=== PATIENT | male | born 1960 | race Caucasian/White ===

== ENCOUNTER 2023-04-28 10:28 | Emergency (ER) | payer MEDICARE, MEDICAID, SELFPAY ==
[2023-04-28] VITALS (8 sets, daily range): BP systolic 114–144; BP diastolic 71–99; PULSE 84–95; RESP 12–23; TEMP 37.2; O2SAT 95–100
--- NOTE | 2023-04-28 10:32 | ECG_ITS ---
Measurements Intervals [place] Rate: 94 P: 33 MI: 212 QRS: -38 QRSD: 128 T: 9 QT: 367 QTc: 459 Interpretive Statements SINUS RHYTHM WITH FIRST DEGREE AV BLOCK MARKED LEFT AXIS DEVIATION [QRS AXIS < -30] MODERATE INTRAVENTRICULAR CONDUCTION DELAY [105+ ms QRS DURATION, 80+ ms Q/S IN V1/V2, NO Q AND 60+ ms R IN I/aVL/V5/V6] NONSPECIFIC ST & T-WAVE ABNORMALITY NO PREVIOUS ECG AVAILABLE FOR COMPARISON Electronically Signed On 04-28-2023 16:38:12 MATH AND PHYSICS INSTRUCTOR by Yemi Tanner M.D.
[2023-04-28 11:01] LABS: Basophils Absolute Auto 0.1 K/mm3 (0.0-0.1); Basophils Percent Auto 0.6 % (0.2-1.2); Eosinophils Absolute Auto 0.3 K/mm3 (0-0.3); Hematocrit 40.6 % (42.0-52.0); Hemoglobin 12.9 g/dL (14.0-18.0); Immature Granulocyte Absolute 0.06 K/mm3 (0.00-0.031); Immature Granulocyte Percent A 0.5 % (0-0.5); Lymphocytes Absolute Auto 1.78 K/mm3 (0.9-3.2); Lymphocytes Percent Auto 15.9 % (18.3-44.2); Mean Corpuscular HGB Conc 31.8 g/dl (32-36); Mean Corpuscular Hemoglobin 30.9 pg (26-34); Mean Corpuscular Volume 97.1 fl (80-100); Mean Platelet Volume 10.8 fl (7.4-10.4); Monocytes Percent Auto 9.2 % (2.6-8.5); Neutrophils Absolute Auto 7.9 K/mm3 (1.3-6.7); Neutrophils Percent Auto 70.8 % (45.5-73.1); Platelet Count Result 218 k/mm3 (150-375); Red Blood Count 4.18 M/mm3 (4.6-6.20); Red Cell Distribution Width 15.1 % (11.5-14.5); White Blood Count 11.2 K/mm3 (4.5-10.0)
[2023-04-28 11:08] LABS: Appearance Urine Clear (Clear); Bacteria Urine None Seen /hpf; Bilirubin Urine Negative (Negative); Blood Urine Negative (Negative); Color Urine Yellow (Yellow); Glucose Urine UA Negative (Negative); Ketones Urine Negative (Negative); Leukocyte Esterase Ur Trace LEU/UL (Negative); Nitrate Urine Negative (Negative); Non Pathogenic Casts 0-2; Protein Urine Negative (Negative); RBC Urine 0-2 /hpf (0-2); Specific Grav Ur 1.011 (1.001-1.035); Squamous Epithelial Cell Urine None seen /hpf (Few); Urobilinogen Urine 0.2 mg/dL (<2.0); WBC Urine 0-5 /hpf; pH Urine 6.5 (5.0-9.0)
[2023-04-28 11:12] LABS: Alanine Aminotransferase 20 U/L (6-50); Albumin Level 3.6 g/dL (3.5-5.1); Alkaline Phosphatase 75 U/L (38-126); Anion Gap 5 mmol/L (8-16); Aspartate Amino Transferase 31 U/L (17-59); Bilirubin,Total 0.6 mg/dL (0.2-1.3); Blood Urea Nitrogen 15 mg/dL (9-20); Calcium 8.9 mg/dL (8.4-10.2); Carbon Dioxide 30 mmol/L (22-30); Chloride 104 mmol/L (98-107); Estimated CRCL calculation 75 ml/min; Estimated Glomerular Filt Rate > 60; Glucose 114 mg/dL (65-110); INR 1.1; Partial Thromboplastin Time 26.2 SECONDS (22.3-36.8); Potassium 2.8 mmol/L (3.4-5.0); Prothrombin Time 14.2 Seconds (11.1-14.7); Sodium 139 mmol/L (137-145)
[2023-04-28 11:14] LABS: Add Urine Microscopic? YES
[2023-04-28] MEDS: POTASSIUM CHLORIDE 20 MEQ ER TABLET 40 MEQ PO (11:46)
--- NOTE | 2023-04-28 14:29 | ED.GENADULT ---
HPI - General Adult General Chief complaint: Altered Mental Status Stated complaint: ALOC x 2 days Time Seen by Provider: 04/28/23 10:38 History of Present Illness HPI narrative: patient is a 63-year-old male who presents the ER without any complaints. He was sent by his group home for reports of altered level of consciousness and increased agitation over last 2 days. Patient is oriented times 4. He reports he wants to go to [place] in leave his group home. He does not have a plan to leave normal ride. He has no reports of depression or suicidality. Has no medical complaints at this time. Due to the facilities concern of confusion and possible infection he has agreed to further evaluation. Related Data Allergies Allergy/AdvReac Type Severity Reaction Status Date / Time No Known Allergies Allergy Verified 04/28/23 10:31 Review of Systems Review of Systems: All systems reviewed & are unremarkable except as noted in HPI and below Constitutional: Constitutional: Reports no additional constitutional complaints ENT: Reports system reviewed and no additional complaints, except as documented Cardiovascular: Cardiovascular: Reports no additional cardiovascular complaints Respiratory: Respiratory: Reports no additional respiratory complaints Gastrointestinal: Gastrointestinal: Reports no additional gastrointestinal complaints Musculoskeletal: Musculoskeletal: Reports no additional musculoskeletal complaints PMF Past Medical History Medical History (Updated 04/28/23 @ 16:03 by [place] MD) Bipolar disorder Congestive heart failure COPD (chronic obstructive pulmonary disease) GERD (gastroesophageal reflux disease) Hypertension Obstructive sleep apnea Rheumatoid arthritis Surgical History Surgical History (Updated 04/28/23 @ 16:03 by [place] MD) Above-knee amputation bilateral Exam Narrative: GENERAL: Chronically ill-appearing, well-nourished, and in no acute distress. HEAD: Normocephalic, atraumatic. ENT: Mucous membranes moist. NECK: Supple. CHEST: Clear to auscultation. No respiratory distress. HEART: Regular rate and rhythm. Normal peripheral pulses. ABDOMEN: Soft, nontender, nondistended. EXTREMITIES: Bilateral AKAs. SKIN: Warm, dry, no rash. NEURO: No focal deficits. Alert and oriented x3. PSYCH: Normal mood and affect. Course Course Emergency Course: Patient with low potassium. He has received 60 mEq in the ER. He is not altered. There is no evidence of infection and he has no complaints. He will be sent back to his facility. Leukocytosis is nonspecific. Vital Signs Vital signs: Vital Signs Temperature 98.9 F 04/28/23 10:32 Pulse Rate 93 04/28/23 10:32 Respiratory Rate 12 04/28/23 10:32 Blood Pressure 129/90 04/28/23 10:32 Pulse Oximetry 96 04/28/23 10:32 Oxygen Delivery Room Air 04/28/23 10:32 Temperature 98.9 F 04/28/23 10:32 Pulse Rate 89 04/28/23 15:32 Respiratory Rate 15 04/28/23 15:32 Blood Pressure 114/90 04/28/23 15:32 Pulse Oximetry 95 04/28/23 15:32 Oxygen Delivery Room Air 04/28/23 10:32 Medical Decision Making Vital Signs Vital Signs: Vital Signs Temperature 98.9 F 04/28/23 10:32 Pulse Rate 93 04/28/23 10:32 Respiratory Rate 12 04/28/23 10:32 Blood Pressure 129/90 04/28/23 10:32 Pulse Oximetry 96 04/28/23 10:32 Oxygen Delivery Room Air 04/28/23 10:32 Temperature 98.9 F 04/28/23 10:32 Pulse Rate 89 04/28/23 15:32 Respiratory Rate 15 04/28/23 15:32 Blood Pressure 114/90 04/28/23 15:32 Pulse Oximetry 95 04/28/23 15:32 Oxygen Delivery Room Air 04/28/23 10:32 Lab Data 04/28/23 10:52 04/28/23 14:08 Labs: Lab Results 04/28/23 04/28/23 Range/Units 10:52 14:08 WBC 11.2 H (4.5-10.0) K/mm3 RBC 4.18 L (4.6-6.20) M/mm3 Hgb 12.9 L (14.0-18.0) g/dL Hct 40.6 L (42.0-52.0) % MCV 97.1
[2023-04-28 14:30] LABS: Potassium 2.8 mmol/L (3.4-5.0)
[2023-04-28] MEDS: KCL 20 MEQ/SW 100 ML 100 ML 50 MEQ IVPB (14:50)
[2023-04-28] MEDS: SODIUM CHLORIDE 0.9% IV 250 ML 100 ML (15:09)
== END 2023-04-28 17:47 ==
PROVIDERS: Emergency Provider Emergency Medicine
DX: E87.6 Hypokalemia (principal); I50.9 Heart failure, unspecified; I11.0 Hypertensive heart disease with heart failure; J44.9 Chronic obstructive pulmonary disease, unspecified; K21.9 Gastro-esophageal reflux disease without esophagitis; M06.9 Rheumatoid arthritis, unspecified; G47.33 Obstructive sleep apnea (adult) (pediatric); Z89.612 Acquired absence of left leg above knee; Z89.611 Acquired absence of right leg above knee; I44.2 Atrioventricular block, complete; I45.9 Conduction disorder, unspecified
CPT/HCPCS: 36415; 80053; 81001; 84132; 85025; 85610; 85730; 93005; 96365; 96366; 99284; A9270; J3480; J7050

== ENCOUNTER 2023-05-16 02:02 | Emergency (ER) | payer MEDICARE, MEDICAID, SELFPAY ==
--- NOTE | ~2023-05-16 | CT_ITS ---
EXAMINATION: CT cervical spine wo con DATE: 05/16/2023 03:23 INDICATION: Headache post fall from bed with neck trauma TECHNIQUE: Computed tomography (CT) of the cervical spine was performed without intravenous contrast. Automated exposure control and iterative reconstruction technique were employed. The dose-length pro duct was 525.00 mGy-cm. COMPARISON: None FINDINGS: Treatment of the normal cervical lordosis. 1-2 mm retrolisthesis C4 on C5. Anterior plate-screw fixat ion for C5-C7 instrumented anterior spinal fusion. The C5-C6 disc space appear solidly fused. There i s residual lucency extending across the narrow and irregular C6-C7 disc space. There is a fracture of the left-sided screw at C7 with up to 4 mm anterior backing out of the head fragment of the screw. T here is no lucent tract between the fractured screw fragments suggesting this is chronic. Moderate os teoarthritis at the atlantoaxial articulation. Unfused vertebral body heights are normal. No acute fr acture. There are severe disc height loss at C4-C5 and C7-T1. Mild disc height loss at C2-C3 and C3-C 4. Cervical soft tissues are unremarkable. Smooth septal line thickening and some groundglass opacity and smooth septal line thickening and some groundglass opacity consistent with mild pulmonary edema at the apices of lungs. The following disc levels are specifically discussed: C2-C3: Disc is bulging. There is mild left and minimal right uncovertebral joint osteoarthritis. Ther e is mild left and severe right facet joint osteoarthritis. There is mild right neural foraminal sten osis. There is mild central canal stenosis. C3-C4: Disc is mildly bulging. There is mild bilateral uncovertebral joint osteoarthritis. There is m ild right and moderate left facet joint osteoarthritis. There is mild left neural foraminal stenosis. There is negligible central canal stenosis. C4-C5: Posterior disc osteophyte complex. There is severe bilateral uncovertebral joint osteoarthriti s. There is mild bilateral facet joint osteoarthritis. There is moderate bilateral neural foraminal s tenosis. There is mild central canal stenosis. C5-C6: Disc space is fused with no central canal stenosis at the level of the disc space. There is so me ossification of the posterior longitudinal ligament resulting in mild central canal stenosis at th e level of C6. There is mild bilateral facet joint osteoarthritis with developing fusion across the m argins of the bilateral facet joints. There is no neural foraminal stenosis. C6-C7: Mild hypertrophic change along the posterior margin of the still unfused disc space. There is mild bilateral uncovertebral joint osteoarthritis. There is mild bilateral facet joint osteoarthritis . There is mild bilateral neural foraminal stenosis. There is mild central canal stenosis. C7-T1: Small posterior disc osteophyte complex. There is severe bilateral uncovertebral joint osteoar thritis. There is mild bilateral facet joint osteoarthritis. There is mild bilateral neural foraminal stenosis. There is mild central canal stenosis. IMPRESSION: 1. No acute osseous abnormality. 2. Severe cervical spondylosis on either side of a new instrumented C5-C7 anterior spinal fusion as d etailed above. 3. Likely chronic fracture and backing out of the left-sided screw at C7. Reviewed, dictated and finalized at location A. IMPRESSION: 1. No acute osseous abnormality. 2. Severe cervical spondylosis on either side of a new instrumented C5-C7 anter ior spinal fusion as detailed above. 3. Likely chronic fracture and backing out of the left-sided screw at C7.
--- NOTE | ~2023-05-16 | CT_ITS ---
EXAMINATION: CT brain wo con DATE: 05/16/2023 03:23 INDICATION: Anticoagulated patient presenting with headache post fall from bed TECHNIQUE: Computed tomography (CT) of the head was performed without intravenous contrast. Sagittal and coronal reconstructions were performed. The mA was adjusted according to patient size. Iterative reconstruction technique was employed. The dose-length product was 757.00 mGy-cm. COMPARISON: None FINDINGS: No fracture. No acute intracranial hemorrhage, acute infarction or abnormal extra axial fluid collect ion. There scattered regions of encephalomalacia consistent with old infarcts, the largest in the lef t temporal lobe extending into the insula with smaller regions in the left occipital, left parietal a nd left frontal and right frontal lobes and in the right temporal parietal region. There is additiona l mild scattered white matter hypoattenuation consistent with chronic small vessel ischemic disease. Symmetric prominence of the sulci and ventricles consistent with moderate age-appropriate diffuse cer ebral volume loss. No mass/mass effect. Minimal bubbly mucus in the posterior most right ethmoid sinu s. The orbits and mastoid air cells are normal. IMPRESSION: 1. No fracture or acute intracranial process. 2. 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 3. Age-related changes including moderate diffuse volume loss and mild scattered white matter hypoatt enuation consistent with chronic small vessel ischemic disease. Reviewed, dictated and finalized at location A. IMPRESSION: 1. No fracture or acute intracranial process. 2. 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 3. Age-related changes including moderate diffuse volume loss and mild scattere d white matter hypoattenuation consistent with chronic small vessel ischemic di sease.
[2023-05-16 02:08] VITALS: BP 105/64; PULSE 87; RESP 18; TEMP 36.3; O2SAT 94
[2023-05-16 04:04] VITALS: BP 112/93; PULSE 87; RESP 16; O2SAT 96
--- NOTE | 2023-05-16 04:37 | ED.GENADULT ---
HPI - General Adult General Chief complaint: Fall Stated complaint: fall out of bed, 1 foot Time Seen by Provider: 05/16/23 04:25 History of Present Illness HPI narrative: patient 63-year-old gentleman presents emergency department with chief complaint of fall from bed. Patient reports that he rolled out of his bed on the ground patient reports no loss of consciousness but does report he has global headache. Patient is on Xarelto. Related Data Allergies Allergy/AdvReac Type Severity Reaction Status Date / Time No Known Allergies Allergy Verified 04/28/23 10:31 Review of Systems Review of Systems: A 10 system review of systems was completed on the patient and is negative except for what is stated in the HPI. Nursing and ancillary documentation was reviewed. [facility] Past Medical History Medical History Bipolar disorder Congestive heart failure COPD (chronic obstructive pulmonary disease) GERD (gastroesophageal reflux disease) Hypertension Obstructive sleep apnea Rheumatoid arthritis Surgical History Surgical History Above-knee amputation bilateral Exam Narrative: GENERAL: Well-appearing, well-nourished, and in no acute distress. HEAD: Normocephalic, atraumatic. EYES: PERRLA and EOMI. ENT: Nares clear, no rhinorrhea or epistaxis. Mucous membranes moist. NECK: Supple. CHEST: Clear to auscultation. No respiratory distress. HEART: Regular rate and rhythm. No murmur heard. Normal peripheral pulses. ABDOMEN: Soft, nontender, nondistended, normal active bowel sounds. EXTREMITIES: Normal range of motion Bilateral above knee amputations. No edema. SKIN: Warm, dry, no rash. NEURO: No focal deficits. Alert and oriented x3. PSYCH: Normal mood and affect. Course Vital Signs Vital signs: Vital Signs Temperature 36.3 C L 05/16/23 02:08 Pulse Rate 87 05/16/23 02:08 Respiratory Rate 18 05/16/23 02:08 Blood Pressure 105/64 05/16/23 02:08 Pulse Oximetry 94 05/16/23 02:08 Oxygen Delivery Room Air 05/16/23 02:08 Temperature 36.3 C L 05/16/23 02:08 Pulse Rate 82 05/16/23 06:50 Respiratory Rate 16 05/16/23 06:50 Blood Pressure 121/75 05/16/23 06:50 Pulse Oximetry 100 05/16/23 06:50 Oxygen Delivery Nasal Cannula 05/16/23 04:39 Oxygen Flow Rate 2 05/16/23 04:39 Medical Decision Making MDM Narrative Medical decision making narrative: differential diagnosis includes cervical spine fracture, intracranial hemorrhage CT head CT C-spine showed no acute abnormalities the patient will be discharged back to his care facility Vital Signs Vital Signs: Vital Signs Temperature 36.3 C L 05/16/23 02:08 Pulse Rate 87 05/16/23 02:08 Respiratory Rate 18 05/16/23 02:08 Blood Pressure 105/64 05/16/23 02:08 Pulse Oximetry 94 05/16/23 02:08 Oxygen Delivery Room Air 05/16/23 02:08 Temperature 36.3 C L 05/16/23 02:08 Pulse Rate 82 05/16/23 06:50 Respiratory Rate 16 05/16/23 06:50 Blood Pressure 121/75 05/16/23 06:50 Pulse Oximetry 100 05/16/23 06:50 Oxygen Delivery Nasal Cannula 05/16/23 04:39 Oxygen Flow Rate 2 05/16/23 04:39 Discharge Plan Discharge Clinical Impression: Accidental fall from bed, Head injury Patient Disposition: Home, Self-Care Condition: Stable Instructions: Antibiotic Form, Head Injury (ED) Prescriptions: No Action potassium chloride 20 mEq tablet extended release 20 meq PO BID Qty: 10 0RF Follow-up/Referrals: UNKNOWN,DOCTOR [Primary Care Provider] - Time of Disposition: 07:04
[2023-05-16 04:39] VITALS: O2SAT 96
[2023-05-16 05:20] VITALS: BP 128/68; PULSE 84; RESP 16; O2SAT 98
[2023-05-16 06:50] VITALS: BP 121/75; PULSE 82; RESP 16; O2SAT 100
[2023-05-16 07:21] VITALS: BP 99/72; PULSE 82; RESP 19; O2SAT 100
== END 2023-05-16 08:00 | disposition home or self-care (01) ==
PROVIDERS: Emergency Provider Emergency Medicine
DX: S09.90XA Unspecified injury of head, initial encounter (principal); I11.0 Hypertensive heart disease with heart failure; I50.9 Heart failure, unspecified; J44.9 Chronic obstructive pulmonary disease, unspecified; Z79.01 Long term (current) use of anticoagulants; W06.XXXA Fall from bed, initial encounter
CPT/HCPCS: 70450; 72125; 99284

== ENCOUNTER 2023-10-12 06:20 | Inpatient (IN) | payer MEDICARE, MEDICAID, SELFPAY ==
[2023-10-12] VITALS (16 sets, daily range): BP systolic 118–148; BP diastolic 69–88; PULSE 80–107; RESP 16–23; TEMP 36.1–36.7; O2SAT 92–99
--- NOTE | ~2023-10-12 | XR_ITS ---
XR chest 1V portable 10/14/2023 12:46 Indication: Shortness of breath Procedure: AP portable chest Comparison: 10/12/2023 Findings: Cardiomegaly with pulmonary edema. Small right pleural effusion. No pneumothorax. No acute osseous abnormality. Impression: 1: Cardiomegaly with pulmonary edema. Reviewed, dictated and finalized at location B. Impression: 1: Cardiomegaly with pulmonary edema.
--- NOTE | ~2023-10-12 | XR_ITS ---
EXAMINATION: XR chest 1V portable DATE: 10/12/2023 07:32 INDICATION: Cough. Shortness of breath. TECHNIQUE: A single frontal view of the chest was obtained. COMPARISON: None. FINDINGS: There is a diffuse interstitial pattern in the lungs. There are mild airspace opacities in the lower lung zones. No pleural effusion or pneumothorax. Cardiomegaly is noted. There are changes o f anterior fusion procedure in cervical spine. IMPRESSION: 1. Diffuse lung disease, likely mild pulmonary edema and basilar atelectasis. 2. Cardiomegaly. Reviewed, dictated and finalized at location A.
--- NOTE | 2023-10-12 06:30 | ECG_ITS ---
Test Date: 2023-10-12 06:38:02 Measurements Intervals [place] Rate: 102 P: 43 DE: 202 QRS: -34 QRSD: 127 T: 92 QT: 371 QTc: 485 Interpretive Statements SINUS TACHYCARDIA WITH OCCASIONAL VENTRICULAR PREMATURE COMPLEXES POSSIBLE LEFT ATRIAL ENLARGEMENT [-0.1mV P WAVE IN V1/V2] MARKED LEFT AXIS DEVIATION [QRS AXIS < -30] No previous ECG available for comparison Electronically Signed On 10-12-2023 08:55:11 CDT by Yemi Tanner M.D.
--- NOTE | 2023-10-12 06:47 | ED.SOB ---
HPI - SOB/Dyspnea General Chief Complaint: Shortness of Breath/Dyspnea <Shireen Lang MD - Last Filed: 10/12/23 06:55> Stated Complaint: SOB <Shireen Lang MD - Last Filed: 10/12/23 06:55> Time Seen by Provider: 10/12/23 06:46 <Shireen Lang MD - Last Filed: 10/12/23 06:55> History of Present Illness HPI Narrative: Patient with history of COPD, CHF, presents with shortness of breath and cough has been ongoing for the last day. Got albuterol treatments from EMS and is feeling better after that. <Shireen Lang MD - Last Filed: 10/12/23 06:55> Related Data Allergies/Adverse Reactions: Allergies Allergy/AdvReac Type Severity Reaction Status Date / Time No Known Allergies Allergy Verified 04/28/23 10:31 <Shireen Lang MD - Last Filed: 10/12/23 06:55> Review of Systems Review of Systems: All systems reviewed & are unremarkable except as noted in HPI and below <Shireen Lang MD - Last Filed: 10/12/23 06:55> PMFSH Past Medical History Medical History: Medical History Bipolar disorder Congestive heart failure COPD (chronic obstructive pulmonary disease) GERD (gastroesophageal reflux disease) Hypertension Obstructive sleep apnea Rheumatoid arthritis <Shireen Lang MD - Last Filed: 10/12/23 06:55> Surgical History Surgical History: Surgical History Above-knee amputation bilateral <Shireen Lang MD - Last Filed: 10/12/23 06:55> Exam Narrative: EXAMINATION OF ORGAN SYSTEMS/BODY AREAS: Constitutional: Vital signs per nursing GENERAL: Appears slightly dyspneic HEAD: Normal with no signs of head trauma. EYES: EOMI, conjunctiva normal ENT: Hearing grossly intact LUNGS: Slight rhonchi and wheezing bilateral lungs HEART: Tachycardic ABD: [Soft], nontender palpation EXT: Bilateral lower extremity amputations SKIN: [No rashes or lesions.] NEURO: [Alert and oriented x 3. No gross focal sensory or strength deficits.] PSYCH: Normal affect <Shireen Lang MD - Last Filed: 10/12/23 06:55> Course Vital Signs Vital signs: Vital Signs Temperature 36.7 C 10/12/23 06:19 Pulse Rate 105 H 10/12/23 06:19 Respiratory Rate 18 10/12/23 06:19 Blood Pressure 118/69 10/12/23 06:19 Pulse Oximetry 93 10/12/23 06:19 Oxygen Delivery Nasal Cannula 10/12/23 06:19 Oxygen Flow Rate 3 10/12/23 06:19 Temperature 36.4 C L 10/12/23 08:54 Pulse Rate 102 H 10/12/23 10:32 Respiratory Rate 20 10/12/23 10:32 Blood Pressure 118/78 10/12/23 10:32 Pulse Oximetry 97 10/12/23 10:32 Oxygen Delivery Nasal Cannula 10/12/23 06:29 Oxygen Flow Rate 3 10/12/23 06:29 <Shireen Lang MD - Last Filed: 10/12/23 06:55> Vital Signs Temperature 36.7 C 10/12/23 06:19 Pulse Rate 105 H 10/12/23 06:19 Respiratory Rate 18 10/12/23 06:19 Blood Pressure 118/69 10/12/23 06:19 Pulse Oximetry 93 10/12/23 06:19 Oxygen Delivery Nasal Cannula 10/12/23 06:19 Oxygen Flow Rate 3 10/12/23 06:19 Temperature 36.4 C L 10/12/23 08:54 Pulse Rate 102 H 10/12/23 10:32 Respiratory Rate 20 10/12/23 10:32 Blood Pressure 118/78 10/12/23 10:32 Pulse Oximetry 97 10/12/23 10:32 Oxygen Delivery Nasal Cannula 10/12/23 06:29 Oxygen Flow Rate 3 10/12/23 06:29 <Willy Rodriguez MD - Last Filed: 10/12/23 14:12> MDM - SOB/Dyspnea MDM Narrative Medical decision making narrative: 53-year-old male with history of CHF and COPD presents with new cough, shortness of breath, my differential includes possible pneumonia, COPD exacerbation, CHF exacerbation. Workup initiated, since he did feel better after breathing treatment so I have ordered additional treatment. He is signed out to oncoming ER physician. <Shireen Lang MD - Last Filed: 10/12/23 06:55> 53-year-old male with history of CHF and COPD presents with new cough,
[2023-10-12 06:56] LABS: Basophils Absolute Auto 0.1 K/mm3 (0.0-0.1); Basophils Percent Auto 0.6 % (0.2-1.2); Eosinophils Absolute Auto 0.1 K/mm3 (0-0.3); Eosinophils Percent Auto 1.3 % (0-4.4); Hematocrit 40.1 % (42.0-52.0); Hemoglobin 12.5 g/dL (14.0-18.0); Immature Granulocyte Absolute 0.03 K/mm3 (0.00-0.031); Immature Granulocyte Percent A 0.3 % (0-0.5); Lymphocytes Absolute Auto 1.62 K/mm3 (0.9-3.2); Lymphocytes Percent Auto 15.7 % (18.3-44.2); Mean Corpuscular HGB Conc 31.2 g/dl (32-36); Mean Corpuscular Hemoglobin 29.6 pg (26-34); Mean Corpuscular Volume 94.8 fl (80-100); Mean Platelet Volume 11.5 fl (7.4-10.4); Monocytes Absolute Auto 0.9 K/mm3 (0.1-0.6); Monocytes Percent Auto 8.6 % (2.6-8.5); Neutrophils Absolute Auto 7.6 K/mm3 (1.3-6.7); Neutrophils Percent Auto 73.5 % (45.5-73.1); Platelet Count Result 243 k/mm3 (150-375); Red Blood Count 4.23 M/mm3 (4.6-6.20); Red Cell Distribution Width 15.9 % (11.5-14.5); White Blood Count 10.3 K/mm3 (4.5-10.0)
[2023-10-12] MEDS: ALBUTEROL SULFATE NEB 2.5 MG/3 ML INH 15 MG INHALATION (07:03)
[2023-10-12] MEDS: IPRATROPIUM BR 0.02% INH SOLN 0.5 MG/2.5 ML VIAL 1 MG INHALATION (07:04)
[2023-10-12 07:05] LABS: Alanine Aminotransferase 23 U/L (6-50); Albumin Level 3.6 g/dL (3.5-5.1); Alkaline Phosphatase 92 U/L (38-126); Anion Gap 9 mmol/L (4-12); Aspartate Amino Transferase 27 U/L (17-59); Bilirubin,Total 0.7 mg/dL (0.2-1.3); Blood Urea Nitrogen 18 mg/dL (9-20); Calcium 8.8 mg/dL (8.4-10.2); Carbon Dioxide 23 mmol/L (22-30); Chloride 105 mmol/L (98-107); Estimated CRCL calculation 72 ml/min; Estimated Glomerular Filt Rate > 60; Glucose 96 mg/dL (65-110); Potassium 3.8 mmol/L (3.4-5.0); Sodium 137 mmol/L (137-145)
[2023-10-12 07:21] LABS: NT Pro B Type Natriuretic Pept 6200 pg/mL (19.9-100)
[2023-10-12 07:32] LABS: Influenza A QL RT-PCR Negative (Negative); Influenza B QL RT-PCR Negative (Negative); RSV RNA, RT-PCR Negative (Negative); SARS-CoV-2 RNA PCR Negative (Negative)
--- NOTE | 2023-10-12 07:52 | PC.NURSE ---
Pt difficult stick for IV access. ED RN x2 attempted without success. Pt states he normally has to get US IV placement.
[2023-10-12] MEDS: methylPREDNISolone SOD SUCC 125 MG VIAL 40 MG IV PUSH (08:37)
[2023-10-12] MEDS: FUROSEMIDE INJ 40 MG/4 ML VIAL IV PUSH ×2 (08:41→17:35)
[2023-10-12] MEDS: DOXYCYCLINE HYCLATE 100 MG TABLET PO (08:46)
--- NOTE | 2023-10-12 10:26 | PC.NURSE ---
Pt c/o hunger. made aware. VORB for heart healthy diet.
--- NOTE | 2023-10-12 16:25 | ADMGEN ---
This patient, Emanuel Valles, was admitted to 3 [facility] Surg Room 323-01. Patient/family oriented to hospital policies and general routines including ID bracelet, bed and alarms, visiting hours, pain management, procedures, bathroom and other care routines, personal items, smoking policy, room service/diet, and visiting hours. Information on how to activate the Rapid Response Team has been discussed. Patient/Family are encouraged to report perceived risks to care and to ask questions if they do not understand what they are told or what they should do.
--- NOTE | 2023-10-12 21:31 | PM.IMHP ---
H&P: HPI History of Present Illness Date/Time: 10/12/23 22:00 Chief Complaint: Shortness of breath. Narrative: This is a 63-year-old male with chronic obstructive pulmonary disease, chronic respiratory failure on home oxygen, obstructive sleep apnea, congestive heart failure, hypertension, hyperlipidemia, rheumatoid arthritis, depression, and anxiety who presented to the emergency department via EMS from [facility], [place] for evaluation of shortness of breath. He is a fair historian and provides the following history. He endorses increasing shortness of breath from baseline over the past 2 weeks which was worse starting around 05:00. He has a chronic cough which is occasionally productive of greenish phlegm which is not unusual for him. He was given a nebulizer treatment per EMS in route to the hospital which seems to have helped. He denies fever, chills, sweats, sore throat, chest and pleuritic pain, orthopnea, paroxysmal nocturnal dyspnea, nausea, vomiting, and diarrhea. In the ED: He was afebrile on arrival with stable blood pressures. SpO2 has been in the mid 90s on his usual 3 L. labs are significant for WBC count 10.3, hemoglobin 12.5, platelet 243, proBNP 6200. He tested negative for influenza, RSV, and COVID. Chest x-ray showed diffuse lung disease, likely mild pulmonary edema and basilar atelectasis, and cardiomegaly. He received methylprednisolone 40 mg IV, a nebulizer treatment, and furosemide 40 mg IV and he is being admitted in this setting for further treatment. Review of Systems Review of Systems: 12 systems were reviewed and are negative except for as per HPI. [facility] Past Medical History Medical History (Updated 10/12/23 @ 21:38 by Reina Bowen PA-C) Bipolar disorder Chronic anticoagulation Chronic obstructive pulmonary disease Chronic respiratory failure with hypoxia, on home oxygen therapy Congestive heart failure Gastroesophageal reflux disease Hypertension Obstructive sleep apnea on CPAP Paroxysmal atrial fibrillation Rheumatoid arthritis Surgical History Surgical History (Updated 10/12/23 @ 21:36 by Reina Bowen PA-C) History of above-knee amputation of both lower extremities Family History Family History Father Pancreatic cancer Social History Social History (Updated 10/12/23 @ 23:54 by Reina Boewn PA-C) Social History: Surrogate medical decision maker: Gricelda Colmenares, daughter. Code status: Full code. Smoking status: Former smoker Alcohol intake: former Substance use: current Substance use type: marijuana Do You Feel Safe in your Home?: Yes Lack of Transportation: No Lack of Food: Never True Current Housing: I Have Housing Concerned About Future Housing: No Difficulty Paying Gas/Electric Bills: No Difficulty Paying for Meds: No Currently Unemployed: No Education: Grade School Difficulty w/ Childcare or Family Care: No Spiritual care concerns: No Meds Home Medications and Allergies Home Medications Medication Instructions Recorded Confirmed Type potassium chloride 20 mEq 20 meq PO BID #10 tabs 04/28/23 10/12/23 Rx tablet,extended release acetaminophen 650 mg tablet 650 mg PO Q6H PRN Pain (Scale 10/12/23 10/12/23 History Score 1-3) albuterol sulfate 90 mcg/actuation 2 puff inhalation QID PRN 10/12/23 10/12/23 History aerosol inhaler Shortness Of Breath amiodarone 200 mg tablet 200 mg PO BID 10/12/23 10/12/23 History amitriptyline 75 mg tablet 75 mg PO HS 10/12/23 10/12/23 History aspirin 81 mg tablet,delayed 81 mg PO DAILY 10/12/23 10/12/23 History release atorvastatin 20 mg tablet 20 mg PO HS 10/12/23 10/12/23 History budesonide-formoterol HFA 160 2 puff inhalation Q12H 10/12/23 10/12/23 History mcg-4.5 mcg/actuation aerosol inhaler (Symbicort) buspirone 10 mg tablet 10 mg PO BID 10/12/23 10/12/23 History cholestyramine (with sugar) 4 gram 4 g PO BID
[2023-10-12] MEDS: busPIRone HCL 10 MG TABLET PO (22:21)
[2023-10-12] MEDS: AMIODARONE HCL 200 MG TABLET PO (22:21)
[2023-10-12] MEDS: AMITRIPTYLINE HCL 25 MG TABLET 75 MG PO (22:21)
[2023-10-12] MEDS: FAMOTIDINE 20 MG TABLET PO (22:21)
[2023-10-12] MEDS: ATORVASTATIN 20 MG TABLET PO (22:21)
[2023-10-12] MEDS: DIGOXIN TAB 125 MCG TABLET PO (22:21)
[2023-10-12] MEDS: DIVALPROEX SODIUM DR 250 MG TABEC 500 MG PO (22:21)
[2023-10-12] MEDS: GABAPENTIN 100 MG CAPSULE PO (22:22)
[2023-10-12] MEDS: oxyCODONE HCL (*CRX) 5 MG TAB IR PO (22:22)
[2023-10-12] MEDS: QUEtiapine FUMARATE 25 MG TABLET PO (22:22)
[2023-10-12] MEDS: MELATONIN 5 MG TABLET PO (22:22)
[2023-10-12] MEDS: RIVAROXABAN 20 MG TABLET PO (22:22)
[2023-10-13] VITALS (10 sets, daily range): BP systolic 103–132; BP diastolic 69–80; PULSE 70–103; RESP 16–20; TEMP 36.3–37.1; O2SAT 91–96
--- NOTE | 2023-10-13 02:07 | ECG_ITS ---
Test Date: 2023-10-13 03:39:46 Measurements Intervals [place] Rate: 87 P: 46 [place]: 188 QRS: 49 QRSD: 136 T: 76 QT: 431 QTc: 520 Interpretive Statements SINUS RHYTHM POSSIBLE LEFT ATRIAL ENLARGEMENT [-0.1mV P WAVE IN V1/V2] INTRAVENTRICULAR CONDUCTION DELAY [130+ ms QRS DURATION] Compared to ECG 10/12/2023 06:38:02 NO SIGNIFICANT CHANGES Electronically Signed On 10-13-2023 09:29:43 CDT by Yemi Tanner M.D.
[2023-10-13] MEDS: FUROSEMIDE INJ 40 MG/4 ML VIAL IV PUSH ×2 (05:36→17:29)
[2023-10-13 07:08] LABS: Hematocrit 40.6 % (42.0-52.0); Hemoglobin 12.7 g/dL (14.0-18.0); Mean Corpuscular HGB Conc 31.3 g/dl (32-36); Mean Corpuscular Hemoglobin 29.3 pg (26-34); Mean Corpuscular Volume 93.8 fl (80-100); Mean Platelet Volume 11.9 fl (7.4-10.4); Platelet Count Result 258 k/mm3 (150-375); Red Blood Count 4.33 M/mm3 (4.6-6.20); Red Cell Distribution Width 15.9 % (11.5-14.5); White Blood Count 13.1 K/mm3 (4.5-10.0)
[2023-10-13 07:11] LABS: Anion Gap 13 mmol/L (4-12); Blood Urea Nitrogen 27 mg/dL (9-20); Calcium 8.5 mg/dL (8.4-10.2); Carbon Dioxide 26 mmol/L (22-30); Chloride 100 mmol/L (98-107); Estimated CRCL calculation 71 ml/min; Estimated Glomerular Filt Rate > 60; Glucose 116 mg/dL (65-110); Magnesium 1.8 mg/dL (1.6-2.3); Potassium 3.8 mmol/L (3.4-5.0); Sodium 139 mmol/L (137-145)
[2023-10-13 07:25] LABS: Digoxin < 0.5 ng/mL (0.8-2.0)
[2023-10-13] MEDS: FLUTICASONE/SALMETEROL 115-21 MCG INHALER 1 PUFF 2 PUFF INHALATION ×2 (07:45→20:54)
[2023-10-13] MEDS: UMECLIDINIUM BROMIDE 62.5 MCG ELLIPTA 1 PUFF INHALATION (07:45)
[2023-10-13] MEDS: QUEtiapine FUMARATE 25 MG TABLET PO ×2 (08:37→17:27)
[2023-10-13] MEDS: POTASSIUM CHLORIDE 20 MEQ ER TABLET PO ×2 (08:37→17:27)
[2023-10-13] MEDS: oxyCODONE HCL (*CRX) 5 MG TAB IR PO ×2 (08:37→17:27)
[2023-10-13] MEDS: EMPAGLIFLOZIN 10 MG TABLET PO (08:37)
[2023-10-13] MEDS: DIVALPROEX SODIUM DR 250 MG TABEC 500 MG PO ×2 (08:37→20:20)
[2023-10-13] MEDS: GABAPENTIN 100 MG CAPSULE PO ×3 (08:38→17:29)
[2023-10-13] MEDS: CYANOCOBALAMIN 250 MCG TABLET PO (08:38)
[2023-10-13] MEDS: METOPROLOL SUCCINATE EXT REL 25 MG TABCR PO (08:38)
[2023-10-13] MEDS: AMIODARONE HCL 200 MG TABLET PO ×2 (08:38→20:20)
[2023-10-13] MEDS: busPIRone HCL 10 MG TABLET PO ×2 (08:38→17:27)
[2023-10-13] MEDS: FAMOTIDINE 20 MG TABLET PO ×2 (08:38→17:27)
[2023-10-13] MEDS: ASPIRIN 81 MG ENTERIC TABLET PO (08:38)
[2023-10-13] MEDS: DULoxetine HCL 30 MG CAPSULE.DR 90 MG PO (08:38)
[2023-10-13] MEDS: LORATADINE 10 MG TABLET PO (08:38)
--- NOTE | 2023-10-13 09:10 | ECG_ITS ---
Test Date: 2023-10-13 09:30:17 Measurements Intervals [place] Rate: 90 P: 38 [place]: 205 QRS: -22 QRSD: 138 T: 71 QT: 414 QTc: 508 Interpretive Statements SINUS RHYTHM POSSIBLE LEFT ATRIAL ENLARGEMENT [-0.1mV P WAVE IN V1/V2] INTRAVENTRICULAR CONDUCTION DELAY [130+ ms QRS DURATION] Compared to ECG 10/13/2023 03:39:46 No significant changes Electronically Signed On 10-13-2023 09:31:32 CDT by Yemi Tanner M.D.
[2023-10-13] MEDS: CHOLESTYRAMINE (W/ SUGAR) 4 GM POWD.PACK PO ×2 (10:53→16:30)
--- NOTE | 2023-10-13 12:02 | PM.CNCAR ---
Assessment and Plan Assessment and plan (1) Acute on chronic heart failure with reduced ejection fraction (HFrEF, <= 40%): Code(s): I50.23 - Acute on chronic systolic (congestive) heart failure Status: Acute Assessment and Plan: Continue IV Lasix for now. Please monitor strict I/Os. Continue Jardiance, Digoxin, Toprol. Not on ACEi/ARB/ARNI or Spironolactone. Will try to add if his blood pressures can tolerate. Per Dr. Shelton's notes from 2016, he was not a candidate for an ICD. Therefore, not a candidate for Life Vest either. (2) Acute exacerbation of chronic bronchitis: Code(s): J20.9 - Acute bronchitis, unspecified; J42 - Unspecified chronic bronchitis Status: Acute Assessment and Plan: Management as per primary team. (3) Chronic respiratory failure with hypoxia, on home oxygen therapy: Code(s): J96.11 - Chronic respiratory failure with hypoxia; Z99.81 - Dependence on supplemental oxygen Status: Acute Assessment and Plan: On home oxygen (4) Peripheral vascular disease: Code(s): I73.9 - Peripheral vascular disease, unspecified Status: Acute Assessment and Plan: Continue Xarelto, ASA, statin. (5) PVC (premature ventricular contraction): Code(s): I49.3 - Ventricular premature depolarization Status: Acute Assessment and Plan: Continue Toprol. Continue Amiodarone. Unclear why he is on 200mg BID as his maintenance dose, however, since we do not have his prior records, will continue for now and defer to his outpatient physicians. (6) Chronic anticoagulation: Code(s): Z79.01 - alf (current) use of anticoagulants Status: Acute Assessment and Plan: Continue Xarelto. History of Present Illness History of Present Illness Consult date/time: 10/13/23 12:02 Requesting physician: Nahomi Box NP Consult reason: congestive heart failure Reason For Visit: chf,copd exacerbation Narrative: We are consulted for CHF. This is a 63 year old male with chronic systolic heart failure / non-ischemic cardiomyopathy, PVCs, severe peripheral arterial disease with bilateral AKA, hypertension, COPD, chronic hypoxic respiratory failure on home oxygen, CHARO, tobacco use, history of PE who presented to [facility] for shortness of breath over the past two weeks which has progressively worsened, along with a chronic cough. He was given a breathing treatment in the ED with improvement. CXR showed diffuse lung disease, mild pulmonary edema. He is admitted for a COPD / CHF exacerbation. Patient's internal carver was Dr. Shelton, we have some notes from him from 2016, but no recent cardiac reports in our system. Echocardiogram this admission shows LVEF 30-35%, moderate MR. No prior echocardiogram in our system, however, notes from Dr. Shelton in 2016 report LVEF in the 20s. Review of Systems Review of Systems: All systems reviewed & are unremarkable except as noted in HPI and below (HPI) [facility] Past Medical History Medical History (Updated 10/13/23 @ 12:11 by Yemi Tanner MD) Bipolar disorder Chronic anticoagulation Chronic obstructive pulmonary disease Chronic respiratory failure with hypoxia, on home oxygen therapy Congestive heart failure Gastroesophageal reflux disease Hypertension Obstructive sleep apnea on CPAP Paroxysmal atrial fibrillation Rheumatoid arthritis Surgical History Surgical History (Updated 10/12/23 @ 21:36 by Reina Bowen PA-C) History of above-knee amputation of both lower extremities Family History Family History Father Pancreatic cancer Social History Social History (Updated 10/12/23 @ 23:54 by Reina Bowen PA-C) Social History: Surrogate medical decision maker: Gricelda Colmenares, daughter. Code status: Full code. Smoking status: Former smoker Alcohol intake: former Substance use: current Substance use type: marijuana
--- NOTE | 2023-10-13 18:36 | PM.IMPN ---
Progress Note: A&P Assessment and Plan (1) CHF exacerbation: Code(s): I50.9 - Heart failure, unspecified Status: Acute Assessment and Plan: - Regulator Operator following. - Continue IV diuresis with Lasix. - Strict I &O's with daily weights. - Continue Digoxin and metoprolol. - ECHO showing EF 30-35 %. - Not a candidate of ICD per harbor tug captain note. - Continue tele monitoring. (2) Chronic obstructive pulmonary disease: Code(s): J44.9 - Chronic obstructive pulmonary disease, unspecified Status: Acute Assessment and Plan: - Appears stable. - Continue home bronchodilators. - Continue supplemental O2, currently at 3L/NC per home dose. (3) Chronic respiratory failure with hypoxia, on home oxygen therapy: Code(s): J96.11 - Chronic respiratory failure with hypoxia; Z99.81 - Dependence on supplemental oxygen Status: Acute Assessment and Plan: - Appears to be stabilizing. - Mgt as # 1 and # 2. - Maintain supplemental O2 to keep sats > 90 %. (4) Obstructive sleep apnea on CPAP: Code(s): G47.33 - Obstructive sleep apnea (adult) (pediatric) Status: Acute Assessment and Plan: - CPAP bedtime PRN. (5) Paroxysmal atrial fibrillation: Code(s): I48.0 - Paroxysmal atrial fibrillation Status: Acute Assessment and Plan: - Continue metoprolol and Xarelto. - Continue tele monitoring. - Regulator Operator following. (6) Chronic anticoagulation: Code(s): Z79.01 - meterman (current) use of anticoagulants Status: Acute Assessment and Plan: - Continue Xarelto. (7) Hypertension: Code(s): I10 - Essential (primary) hypertension Status: Acute Assessment and Plan: - Fairly well controlled. - Monitor closely with IV diuresis. Plan The patient presented to the emergency department for evaluation of increasing shortness of breath over the past 2 weeks. He is currently at his baseline oxygen requirement with an SpO2 in the mid 90s. Preliminary workup in the ED is consistent with CHF exacerbation with elevated proBNP and pulmonary edema. Continue diuresis with close monitoring of volume status, renal function, and electrolytes. Noted with frequent PVC's and harbor tug captain consulted. Continue amiodarone. Digoxin level noted. Time Spent With Patient Time with patient: 25 - 35 minutes Subjective Date/time seen: 10/13/23 10:36 Interval history: Patient admitted for SOB and is currently being treated for CHF and COPD exacerbation. Regulator Operator consulted to assist with stabilization as patient noted with PVC's on tele. Review of Systems Review of Systems: 12 systems were reviewed and are negative except for as per HPI. Exam Narrative: General: Chronically ill-appearing. HEENT: PERRL, EOMI. Sclera anicteric. Oral mucosa moist. Oropharynx clear. Neck: Supple. No JVD. Respiratory: Respirations are nonlabored he is speaking in full sentences. Fine crackles at bases with faint expiratory wheezing. Cardiovascular: Regular rate and rhythm with S1-S2. Gastrointestinal: Abdomen is soft, protuberant, nontender, and nondistended with positive bowel sounds. Skin: Warm and dry. No rash or lesions on limited exam. Extremities: No cyanosis or clubbing. Bilateral [id number] amputation. Radial pulses palpable. Neurological: Alert. Cranial nerves 2-12 are grossly intact. No gross focal deficits to casual conversation. Psychiatric: Cooperative with appropriate mood and slightly odd affect. Circumferential speech pattern. Objective Data Vital Signs Vital Signs: Vital Signs - 24 hr 10/12/23 20:13 10/12/23 20:05 10/12/23 22:21 Temperature 97.0 F L Pulse Rate 103 H 103 H 105 H Respiratory Rate 20 20 Blood Pressure 148/80 H Pulse Oximetry 92 92 Oxygen Delivery Nasal Cannula Oxygen Flow Rate 3 10/12/23 22:21 10/12/23 20:02 10/13/23 00:03 Temperature Pulse Rate 105 H 104 H 90 Respiratory Rate Bloo
[2023-10-13] MEDS: DIGOXIN TAB 125 MCG TABLET PO (20:19)
[2023-10-13] MEDS: RIVAROXABAN 20 MG TABLET PO (20:19)
[2023-10-13] MEDS: ATORVASTATIN 20 MG TABLET PO (20:19)
[2023-10-13] MEDS: MELATONIN 5 MG TABLET PO (20:20)
[2023-10-13] MEDS: AMITRIPTYLINE HCL 25 MG TABLET 75 MG PO (20:21)
--- NOTE | 2023-10-13 21:40 | ECHO_ITS ---
Patient Info Name: Emanuel Valles Age: 63 years : 1960 Gender: Male Ht: 67 in Wt: 212 lbs BSA: 2.17 m2 HR: 86 bpm BP: 104 / 69 mmHg Heart Rhythm: Sinus Rhythm Technical Quality: Fair Exam Date: 10/13/2023 9:49 AM Exam Location: Echo Lab Patient Status: Inpatient Admit Date: 10/13/2023 Staff Ordering Physician: Reina Bowen PA-C [employer]estock Tenant Farmer: Azalea Forrest RDCs Attending Provider: Gautam Lino MD Referring Physician: Jessi MOSQUEDA; Exam Type: CA echo doppler color flow Study Info Indications I50.20 - Unspecified systolic (congestive) heart failure I48.1 - Persistent atrial fibrillation Complete two-dimensional, color flow and Doppler transthoracic echocardiogram is performed. Summary 1. Left ventricular chamber dimension is mildly enlarged. 2. Left ventricular systolic function is moderately reduced, estimated at 30-35%. 3. Right ventricular systolic function is normal. 4. Left atrial chamber dimension is mildly enlarged. 5. There is moderate mitral valve regurgitation. Left Ventricle Left ventricular chamber dimension is mildly enlarged. Left ventricular systolic function is moderately reduced, estimated at 30-35%. There is no increased left ventricular wall thickness. Right Ventricle Right ventricular chamber dimension is normal. Right ventricular systolic function is normal. Left Atria Left atrial chamber dimension is mildly enlarged. Right Atria Right atrial chamber dimension is normal. Atrial Septum Intact interatrial septum visualized by color flow imaging. Aortic Valve The aortic valve is not well visualized. There is no aortic valve stenosis. There is no aortic valve regurgitation. Pulmonic Valve The pulmonic valve is not well visualized. There is no pulmonic regurgitation. Mitral Valve There is moderate mitral valve regurgitation. The mitral valve annulus is moderately calcified. Tricuspid Valve There is trace tricuspid valve regurgitation. Pericardium/Pleural There is no pericardial effusion. Inferior Vena Cava Inferior vena cava is not well visualized. Aorta The aortic root size at the sinus of Valsalva is normal. Left Ventricular Outflow Tract Name Value Normal LVOT 2D LVOT Diameter 2.2 cm LVOT Doppler LVOT Peak Gradient 3 mmHg LVOT Mean Gradient 1 mmHg LVOT VTI 11 cm LVOT VTI/AV VTI Ratio 0.8 LVOT Stroke Volume 44 ml LVOT CO 3.9 l/min LVOT CI 1.8 l/min/m2 Pulmonic Valve Name Value Normal PV Doppler PV Peak Gradient 2 mmHg Mitral Valve Name Value Normal MV Doppler
[2023-10-14] VITALS (15 sets, daily range): BP systolic 107–135; BP diastolic 73–92; PULSE 75–110; RESP 16–20; TEMP 36.2–37; O2SAT 94–99
--- NOTE | 2023-10-14 00:21 | PC.NURSE ---
Informed Dr. Gonsalves that Pt. just had a 22-23 beat run of V-tach. Pt. currently on Amiodrone 200 mg PO every 12 hours. Cardiology had seen Pt. today and added metoprolol succinate 25 mg PO daily. Pt. on Lanoxin 0.125 mcg at bedtime and he had an echo done today showing EF 30-35 % range with moderate mitral regurge. Per Dr. Gonsalves: give an additional dose of metoprolol succinate 25 mg PO now. Verbal order confirmed by read back.
[2023-10-14] MEDS: METOPROLOL SUCCINATE EXT REL 25 MG TABCR PO ×2 (00:41→08:21)
[2023-10-14] MEDS: FUROSEMIDE INJ 40 MG/4 ML VIAL IV PUSH ×2 (05:10→17:18)
[2023-10-14 08:09] LABS: Hematocrit 46.6 % (42.0-52.0); Hemoglobin 14.6 g/dL (14.0-18.0); Mean Corpuscular HGB Conc 31.3 g/dl (32-36); Mean Corpuscular Hemoglobin 29.1 pg (26-34); Mean Corpuscular Volume 92.8 fl (80-100); Mean Platelet Volume 11.3 fl (7.4-10.4); Platelet Count Result 309 k/mm3 (150-375); Red Blood Count 5.02 M/mm3 (4.6-6.20); Red Cell Distribution Width 16.3 % (11.5-14.5)
[2023-10-14 08:18] LABS: Anion Gap 14 mmol/L (4-12); Blood Urea Nitrogen 27 mg/dL (9-20); Calcium 8.4 mg/dL (8.4-10.2); Carbon Dioxide 29 mmol/L (22-30); Chloride 94 mmol/L (98-107); Estimated CRCL calculation 65 ml/min; Estimated Glomerular Filt Rate > 60; Glucose 108 mg/dL (65-110); Sodium 137 mmol/L (137-145)
[2023-10-14] MEDS: DIVALPROEX SODIUM DR 250 MG TABEC 500 MG PO ×2 (08:20→21:50)
[2023-10-14] MEDS: oxyCODONE HCL (*CRX) 5 MG TAB IR PO ×2 (08:20→17:18)
[2023-10-14] MEDS: GABAPENTIN 100 MG CAPSULE PO ×3 (08:20→17:18)
[2023-10-14] MEDS: CYANOCOBALAMIN 250 MCG TABLET PO (08:20)
[2023-10-14] MEDS: EMPAGLIFLOZIN 10 MG TABLET PO (08:20)
[2023-10-14] MEDS: busPIRone HCL 10 MG TABLET PO ×2 (08:21→17:17)
[2023-10-14] MEDS: DULoxetine HCL 30 MG CAPSULE.DR 90 MG PO (08:21)
[2023-10-14] MEDS: QUEtiapine FUMARATE 25 MG TABLET PO ×2 (08:21→17:18)
[2023-10-14] MEDS: ASPIRIN 81 MG ENTERIC TABLET PO (08:21)
[2023-10-14] MEDS: POTASSIUM CHLORIDE 20 MEQ ER TABLET PO ×2 (08:21→17:18)
[2023-10-14] MEDS: LORATADINE 10 MG TABLET PO (08:21)
[2023-10-14] MEDS: FAMOTIDINE 20 MG TABLET PO ×2 (08:22→17:18)
[2023-10-14] MEDS: AMIODARONE HCL 200 MG TABLET PO ×2 (08:22→21:50)
[2023-10-14] MEDS: FLUTICASONE/SALMETEROL 115-21 MCG INHALER 1 PUFF 2 PUFF INHALATION ×2 (10:08→20:39)
[2023-10-14] MEDS: UMECLIDINIUM BROMIDE 62.5 MCG ELLIPTA 1 PUFF INHALATION (10:08)
--- NOTE | 2023-10-14 11:39 | PM.IMPN ---
Progress Note: A&P Assessment and Plan (1) CHF exacerbation: Code(s): I50.9 - Heart failure, unspecified Status: Acute Assessment and Plan: - Carrot Harvester following. - Continue IV diuresis with Lasix. - Strict I &O's with daily weights. - Continue Digoxin and metoprolol. - ECHO showing EF 30-35 %. - Not a candidate of ICD per acid splicer note. - Continue tele monitoring. (2) Chronic obstructive pulmonary disease: Code(s): J44.9 - Chronic obstructive pulmonary disease, unspecified Status: Acute Assessment and Plan: - Possible increase in coarse breath sounds compared to yesterday. - WBC's elevated and patient not on steroids. - Repeat CXR ordered. - We'll consider steroids pending CXR. - Continue home bronchodilators. - Continue supplemental O2, currently at 3L/NC per home dose with sats > 90 %. (3) Chronic respiratory failure with hypoxia, on home oxygen therapy: Code(s): J96.11 - Chronic respiratory failure with hypoxia; Z99.81 - Dependence on supplemental oxygen Status: Acute Assessment and Plan: - Repeat CXR ordered. - Further Mgt as # 1 and # 2. - Maintain supplemental O2 to keep sats > 90 %. (4) Obstructive sleep apnea on CPAP: Code(s): G47.33 - Obstructive sleep apnea (adult) (pediatric) Status: Acute Assessment and Plan: - CPAP bedtime PRN. (5) Paroxysmal atrial fibrillation: Code(s): I48.0 - Paroxysmal atrial fibrillation Status: Acute Assessment and Plan: - Continue metoprolol and Xarelto. - Continue tele monitoring. - Carrot Harvester following. (6) Chronic anticoagulation: Code(s): Z79.01 - intermediate project manager (current) use of anticoagulants Status: Acute Assessment and Plan: - Continue Xarelto. (7) Hypertension: Code(s): I10 - Essential (primary) hypertension Status: Acute Assessment and Plan: - Fairly well controlled. - Monitor closely with IV diuresis. Plan Patient presented to the emergency department for evaluation of increasing shortness of breath over the past 2 weeks. He is currently at his baseline oxygen requirement with an SpO2 in the mid 90s. Preliminary workup in the ED is consistent with CHF exacerbation with elevated proBNP and pulmonary edema. Continue diuresis with close monitoring of volume status, renal function, and electrolytes. Multiple episodes of PVC's on tele and acid splicer following. Repeat CXR ordered due to possible increased coarse breath sounds. We'll consider steroids pending CXR. Time Spent With Patient Time with patient: 25 - 35 minutes Subjective Date/time seen: 10/14/23 10:35 Interval history: Patient admitted with SOB and is currently being treated for CHF and COPD exacerbation. Carrot Harvester consulted to assist with stabilization as patient noted with PVC's on telemetry. Review of Systems Review of Systems: 12 systems were reviewed and are negative except for as per HPI. Exam Narrative: General: Chronically ill-appearing. HEENT: PERRL, EOMI. Sclera anicteric. Oral mucosa moist. Oropharynx clear. Neck: Supple. No JVD. Respiratory: Coarse breathe sounds with fine crackles at bases. Some expiratory wheezing. Cardiovascular: Regular rate and rhythm with S1-S2. Gastrointestinal: Abdomen is soft, tight, nontender, and nondistended with positive bowel sounds. Skin: Warm and dry. No rash or lesions on limited exam. Extremities: No cyanosis or clubbing. Bilateral [id number] amputation. Radial pulses palpable. Neurological: Alert. Cranial nerves 2-12 are grossly intact. No gross focal deficits to casual conversation. Psychiatric: Cooperative with appropriate mood and slightly odd affect. Objective Data Vital Signs Vital Signs: Vital Signs - 24 hr 10/13/23 14:00 10/13/23 20:19 10/13/23 20:20 Temperature 97.3 F L Pulse Rate 74 70 70 Respiratory Rate 16 Blood Pressure 132/70 Pulse Oximetry 96 Oxygen Delivery
[2023-10-14 13:02] LABS: Procalcitonin 0.2 ng/mL
[2023-10-14] MEDS: CHOLESTYRAMINE (W/ SUGAR) 4 GM POWD.PACK PO ×2 (13:07→17:17)
[2023-10-14] MEDS: ERGOCALCIFEROL 50,000 UNITS CAPSULE 50000 UNITS PO (13:07)
[2023-10-14] MEDS: IPRATROPIUM 0.5 MG/ALBUTEROL SULFATE 2.5 MG AMPUL.NEB 3 ML INHALATION ×2 (13:50→20:37)
--- NOTE | 2023-10-14 14:21 | PM.PNCARD ---
Progress Note: A&P Assessment and Plan (1) Acute on chronic heart failure with reduced ejection fraction (HFrEF, <= 40%): Code(s): I50.23 - Acute on chronic systolic (congestive) heart failure Status: Acute Assessment and Plan: Continue IV Lasix for today, perhaps can shift to p.o. tomorrow. Continue Jardiance, Digoxin, Toprol. Not on ACEi/ARB/ARNI or Spironolactone. Will add low dose Entresto and see if his blood pressure tolerates. Per Dr. Shelton's notes from 2016, he was not a candidate for an ICD. Therefore, not a candidate for Life Vest either. (2) Acute exacerbation of chronic bronchitis: Code(s): J20.9 - Acute bronchitis, unspecified; J42 - Unspecified chronic bronchitis Status: Acute Assessment and Plan: Management as per primary team. (3) Chronic respiratory failure with hypoxia, on home oxygen therapy: Code(s): J96.11 - Chronic respiratory failure with hypoxia; Z99.81 - Dependence on supplemental oxygen Status: Acute Assessment and Plan: On home oxygen (4) Peripheral vascular disease: Code(s): I73.9 - Peripheral vascular disease, unspecified Status: Acute Assessment and Plan: Continue Xarelto, ASA, statin. (5) PVC (premature ventricular contraction): Code(s): I49.3 - Ventricular premature depolarization Status: Acute Assessment and Plan: Continue Toprol. Continue Amiodarone. Unclear why he is on 200mg BID as his maintenance dose, however, since we do not have his prior records, will continue for now and defer to his outpatient physicians. (6) Chronic anticoagulation: Code(s): Z79.01 - senior living (current) use of anticoagulants Status: Acute Assessment and Plan: Continue Xarelto. Subjective Date/time seen: 10/14/23 14:21 Interval history: Cardiology follow up for CHF He is feeling better today, notes an improvement in his breathing. Review of Systems Review of Systems: All systems reviewed & are unremarkable except as noted in HPI and below (HPI) Exam Const: General: comfortable and no acute distress HENMT: Mouth: Yes moist mucous membranes Eyes: General: appearance normal, both eyes and all related structures Sclera: sclerae normal Resp: Effort & Inspection: normal respiratory effort Auscultation: diminished lung sounds Cardio: Rate: regular rate Rhythm: regular rhythm Heart sounds: no murmurs Extrem: Other: Bilateral amputations Psych: Mental Status: mental status grossly normal Affect: normal affect Objective Data Vital Signs Vital Signs: Vital Signs - 24 hr 10/13/23 20:19 10/13/23 20:20 10/13/23 21:05 Temperature 37.1 C Pulse Rate 70 70 103 H Respiratory Rate 16 Blood Pressure 103/80 Pulse Oximetry 95 Oxygen Delivery Oxygen Flow Rate Fraction of Inspired Oxygen 10/13/23 20:00 10/13/23 20:00 10/14/23 00:41 Temperature Pulse Rate 103 H 106 H Respiratory Rate Blood Pressure Pulse Oximetry 95 Oxygen Delivery Nasal Cannula Oxygen Flow Rate 2 Fraction of Inspired Oxygen 10/14/23 00:00 10/14/23 04:00 10/14/23 05:19 Temperature 36.2 C L Pulse Rate 108 H 107 H 80 Respiratory Rate 20 Blood Pressure 135/92 H Pulse Oximetry 97 Oxygen Delivery Oxygen Flow Rate Fraction of Inspired Oxygen 10/14/23 08:21 10/14/23 08:22 10/14/23 08:00 Temperature Pulse Rate 110 H 110 H 110 H Respiratory Rate Blood Pressure Pulse Oximetry Oxygen Delivery Oxygen Flow Rate Fraction of Inspired Oxygen 10/14/23 08:00 10/14/23 10:08 10/14/23 13:50 Temperature Pulse Rate 88 Respiratory Rate 20 Blood Pressure Pulse Oximetry 96 Oxygen Delivery Room Air Nasal Cannula Oxygen Flow Rate 3 Fraction of Inspired Oxygen 32 10/14/23 14:09 Temperature Pulse Rate 92 Respiratory Rate 20 Blood Pressure Pulse Oximetry Oxygen Delivery Oxygen Flow Rate Fraction
[2023-10-14] MEDS: ATORVASTATIN 20 MG TABLET PO (21:50)
[2023-10-14] MEDS: AMITRIPTYLINE HCL 25 MG TABLET 75 MG PO (21:50)
[2023-10-14] MEDS: DIGOXIN TAB 125 MCG TABLET PO (21:51)
[2023-10-14] MEDS: SACUBITRIL/VALSARTAN 12-13 MG TABLET 1 TAB PO (21:51)
[2023-10-14] MEDS: MELATONIN 5 MG TABLET PO (21:51)
[2023-10-14] MEDS: RIVAROXABAN 20 MG TABLET PO (21:51)
[2023-10-15] VITALS (21 sets, daily range): BP systolic 86–147; BP diastolic 50–118; PULSE 74–90; RESP 18–20; TEMP 36.4–36.5; O2SAT 94–99
[2023-10-15] MEDS: IPRATROPIUM 0.5 MG/ALBUTEROL SULFATE 2.5 MG AMPUL.NEB 3 ML INHALATION ×4 (02:49→21:36)
[2023-10-15 06:05] LABS: Potassium 4.3 mmol/L (3.4-5.0)
--- NOTE | 2023-10-15 06:50 | PC.NURSE ---
[address] Matos at this time r/t patient BP 98/70 and lasix 40 mg IVP due at this time. Dr. Matos says to hold dose and to re-evaluate later in AM.
[2023-10-15] MEDS: UMECLIDINIUM BROMIDE 62.5 MCG ELLIPTA 1 PUFF INHALATION (07:48)
[2023-10-15] MEDS: FLUTICASONE/SALMETEROL 115-21 MCG INHALER 1 PUFF 2 PUFF INHALATION ×2 (07:48→21:37)
[2023-10-15] MEDS: AMIODARONE HCL 200 MG TABLET PO ×2 (09:33→21:36)
[2023-10-15] MEDS: SACUBITRIL/VALSARTAN 12-13 MG TABLET 1 TAB PO (09:37)
[2023-10-15] MEDS: QUEtiapine FUMARATE 25 MG TABLET PO ×2 (09:37→19:23)
[2023-10-15] MEDS: ERGOCALCIFEROL 50,000 UNITS CAPSULE 50000 UNITS PO (09:37)
[2023-10-15] MEDS: DIVALPROEX SODIUM DR 250 MG TABEC 500 MG PO ×2 (09:37→21:36)
[2023-10-15] MEDS: CYANOCOBALAMIN 250 MCG TABLET PO (09:38)
[2023-10-15] MEDS: POTASSIUM CHLORIDE 20 MEQ ER TABLET PO ×2 (09:38→19:23)
[2023-10-15] MEDS: GABAPENTIN 100 MG CAPSULE PO ×3 (09:38→19:23)
[2023-10-15] MEDS: LORATADINE 10 MG TABLET PO (09:38)
[2023-10-15] MEDS: FAMOTIDINE 20 MG TABLET PO ×2 (09:38→19:30)
[2023-10-15] MEDS: ASPIRIN 81 MG ENTERIC TABLET PO (09:38)
[2023-10-15] MEDS: DULoxetine HCL 30 MG CAPSULE.DR 90 MG PO (09:38)
[2023-10-15] MEDS: METOPROLOL SUCCINATE EXT REL 25 MG TABCR PO (09:38)
[2023-10-15] MEDS: busPIRone HCL 10 MG TABLET PO ×2 (09:38→19:23)
[2023-10-15] MEDS: EMPAGLIFLOZIN 10 MG TABLET PO (09:38)
[2023-10-15] MEDS: oxyCODONE HCL (*CRX) 5 MG TAB IR PO ×2 (09:38→19:23)
[2023-10-15 09:51] LABS: Hematocrit 44.2 % (42.0-52.0); Hemoglobin 13.4 g/dL (14.0-18.0); Mean Corpuscular HGB Conc 30.3 g/dl (32-36); Mean Corpuscular Hemoglobin 28.9 pg (26-34); Mean Corpuscular Volume 95.5 fl (80-100); Mean Platelet Volume 12.4 fl (7.4-10.4); Platelet Count Result 208 k/mm3 (150-375); Red Blood Count 4.63 M/mm3 (4.6-6.20); Red Cell Distribution Width 16.3 % (11.5-14.5); White Blood Count 11.3 K/mm3 (4.5-10.0)
[2023-10-15] MEDS: CHOLESTYRAMINE (W/ SUGAR) 4 GM POWD.PACK PO (11:12)
--- NOTE | 2023-10-15 12:42 | PM.PNCARD ---
Progress Note: A&P Assessment and Plan (1) Acute on chronic heart failure with reduced ejection fraction (HFrEF, <= 40%): Code(s): I50.23 - Acute on chronic systolic (congestive) heart failure Status: Acute Assessment and Plan: Shift to p.o. furosemide today. Continue Jardiance, Digoxin, Toprol, Entresto Per Dr. Shelton's notes from 2016, he was not a candidate for an ICD. Therefore, not a candidate for Life Vest either. (2) Acute exacerbation of chronic bronchitis: Code(s): J20.9 - Acute bronchitis, unspecified; J42 - Unspecified chronic bronchitis Status: Acute Assessment and Plan: Management as per primary team. (3) Chronic respiratory failure with hypoxia, on home oxygen therapy: Code(s): J96.11 - Chronic respiratory failure with hypoxia; Z99.81 - Dependence on supplemental oxygen Status: Acute Assessment and Plan: On home oxygen (4) Peripheral vascular disease: Code(s): I73.9 - Peripheral vascular disease, unspecified Status: Acute Assessment and Plan: Continue Xarelto, ASA, statin. (5) PVC (premature ventricular contraction): Code(s): I49.3 - Ventricular premature depolarization Status: Acute Assessment and Plan: Continue Toprol. Continue Amiodarone. Unclear why he is on 200mg BID as his maintenance dose, however, since we do not have his prior records, will continue for now and defer to his outpatient physicians. (6) Chronic anticoagulation: Code(s): Z79.01 - snf (current) use of anticoagulants Status: Acute Assessment and Plan: Continue Xarelto. Subjective Date/time seen: 10/15/23 12:42 Interval history: Cardiology follow up for CHF He is feeling better today, notes an improvement in his breathing. Date of service 10/15/2023: Feels about the same. Breathing is stable. Telemetry continues to show brief runs of NSVT Review of Systems Review of Systems: All systems reviewed & are unremarkable except as noted in HPI and below (HPI) Exam Const: General: comfortable and no acute distress HENMT: Mouth: Yes moist mucous membranes Eyes: General: appearance normal, both eyes and all related structures Sclera: sclerae normal Resp: Effort & Inspection: normal respiratory effort Auscultation: diminished lung sounds Cardio: Rate: regular rate Rhythm: regular rhythm Heart sounds: no murmurs Extrem: Other: Bilateral amputations Psych: Mental Status: mental status grossly normal Affect: normal affect Objective Data Vital Signs Vital Signs: Vital Signs - 24 hr 10/14/23 13:50 10/14/23 14:09 10/14/23 14:49 Temperature 37.0 C Pulse Rate 88 92 91 Respiratory Rate 20 20 16 Blood Pressure 107/73 Pulse Oximetry 98 Oxygen Delivery Oxygen Flow Rate 10/14/23 20:38 10/14/23 20:38 10/14/23 20:46 Temperature Pulse Rate 75 90 Respiratory Rate 20 18 Blood Pressure Pulse Oximetry 99 Oxygen Delivery Nasal Cannula Oxygen Flow Rate 3 10/14/23 20:00 10/14/23 22:00 10/15/23 02:50 Temperature 36.6 C Pulse Rate 84 80 Respiratory Rate 18 18 Blood Pressure 127/86 Pulse Oximetry 99 94 Oxygen Delivery Nasal Cannula Oxygen Flow Rate 3 10/15/23 02:57 10/14/23 20:00 10/15/23 00:00 Temperature Pulse Rate 79 84 78 Respiratory Rate 18 Blood Pressure Pulse Oximetry Oxygen Delivery Oxygen Flow Rate 10/15/23 04:00 10/15/23 06:00 10/15/23 07:50 Temperature 36.5 C Pulse Rate 79 74 Respiratory Rate 18 Blood Pressure 98/70 L Pulse Oximetry 96 94 Oxygen Delivery Nasal Cannula Oxygen Flow Rate 3 10/15/23 07:50 10/15/23 08:04 10/15/23 08:00 Temperature Pulse Rate 77 79 90 Respiratory Rate 20 20 Blood Pressure Pulse Oximetry Oxygen Delivery Oxygen Flow Rate 10/15/23 09:33 10/15/23 09:38 10/15/23 08:00 Temperature Pulse Rate 79 79 79 Respiratory Rate Blood Pre
--- NOTE | 2023-10-15 15:26 | PM.IMPN ---
Progress Note: A&P Assessment and Plan (1) CHF exacerbation: Code(s): I50.9 - Heart failure, unspecified Status: Acute Assessment and Plan: - Research Professor following. - Lasix changed to PO. - Continue strict I &O's with daily weights. - Continue Digoxin, metoprolol, Entresto, Jardiance. - ECHO showing EF 30-35 %. - Not a candidate of ICD per convex grinder operator note. - Continue tele monitoring. (2) Chronic obstructive pulmonary disease: Code(s): J44.9 - Chronic obstructive pulmonary disease, unspecified Status: Acute Assessment and Plan: - Appears stable. - WBC's trended down. - Repeat CXR with no infiltrates. - Continue home bronchodilators. - Continue supplemental O2, currently at 3L/NC per home dose with sats > 90 %. (3) Chronic respiratory failure with hypoxia, on home oxygen therapy: Code(s): J96.11 - Chronic respiratory failure with hypoxia; Z99.81 - Dependence on supplemental oxygen Status: Acute Assessment and Plan: - Appears stable. - Continue supplemental O2 to maintain sats > 90 %. - Continue scheduled bronchodilators. (4) Obstructive sleep apnea on CPAP: Code(s): G47.33 - Obstructive sleep apnea (adult) (pediatric) Status: Acute Assessment and Plan: - CPAP bedtime PRN. (5) Paroxysmal atrial fibrillation: Code(s): I48.0 - Paroxysmal atrial fibrillation Status: Acute Assessment and Plan: - Episodes of NSVT on telemetry. - Continue Digoxin, metoprolol and Xarelto. - Continue tele monitoring. - Research Professor following. (6) Chronic anticoagulation: Code(s): Z79.01 - custodial (current) use of anticoagulants Status: Acute Assessment and Plan: - Continue Xarelto. (7) Hypertension: Code(s): I10 - Essential (primary) hypertension Status: Acute Assessment and Plan: - BP trending low normals. - Monitor closely with diuresis. - Adjust meds as needed. Plan Code Status: FULL-CODE. Time Spent With Patient Time with patient: 25 - 35 minutes Subjective Date/time seen: 10/15/23 11:26 Interval history: Patient presented to the emergency department for evaluation of increasing shortness of breath over the past 2 weeks. He is currently at his baseline oxygen requirement with an SpO2 in the mid 90s. Preliminary workup in the ED consistent with CHF exacerbation with elevated proBNP and pulmonary edema. Continue diuresis with close monitoring of volume status, renal function, and electrolytes. Still noted with episodes of PVC's and NSVT. Repeat CXR stable with pulmonary edema. Review of Systems Review of Systems: 12 systems were reviewed and are negative except for as per HPI. Exam Narrative: General: Chronically ill-appearing. HEENT: PERRL, EOMI. Sclera anicteric. Oral mucosa moist. Oropharynx clear. Neck: Supple. No JVD. Respiratory: Faint scattered expiratory wheezes. Cardiovascular: Irregularly Iregular rate and rhythm, no murmurs . Gastrointestinal: Abdomen soft, tight, nontender, nondistended, +positive bowel sounds. Skin: Warm and dry. No rash or lesions on limited exam. Extremities: No cyanosis or clubbing. Bilateral [id number] amputation. Radial pulses palpable. Neurological: Alert. Cranial nerves 2-12 are grossly intact. No gross focal deficits to casual conversation. Psychiatric: Cooperative with appropriate mood and slightly odd affect. Objective Data Vital Signs Vital Signs: Vital Signs - 24 hr 10/14/23 20:38 10/14/23 20:38 10/14/23 20:46 Temperature Pulse Rate 75 90 Respiratory Rate 20 18 Blood Pressure Pulse Oximetry 99 Oxygen Delivery Nasal Cannula Oxygen Flow Rate 10/14/23 20:00 10/14/23 22:00 10/15/23 02:50 Temperature 98 F Pulse Rate 84 80 Respiratory Rate 18 18 Blood Pressure 127/86 Pulse Oximetry 99 94 Oxygen Delivery Nasal Cannula Oxygen Flow Rate 10/15/23 02:57 10/14/23 20:00 10/15/23 00:
--- NOTE | 2023-10-15 15:53 | PM.IMHP ---
H&P: HPI History of Present Illness Date/Time: 10/15/23 15:53 Chief Complaint: Shortness of breath Narrative: Patient presented to the ER with reports of worsening shortness of breath and fatigue within the last 2 weeks. Patient initially presented to her PCP and was observed sitting tripod with O2 sats in the 70's during activity. The demurrage agent was contacted and she recommended patient be transferred to the ER. Patient reports intermittent episodes of cough with small clear sputum. Patient denies any fevers or sick contacts, denies recent travels. Review of Systems Review of Systems: All systems reviewed & are unremarkable except as noted in HPI and below PMFSH Past Medical History Medical History Bipolar disorder Chronic anticoagulation Chronic obstructive pulmonary disease Chronic respiratory failure with hypoxia, on home oxygen therapy Congestive heart failure Gastroesophageal reflux disease Hypertension Obstructive sleep apnea on CPAP Paroxysmal atrial fibrillation Rheumatoid arthritis Surgical History Surgical History History of above-knee amputation of both lower extremities Family History Family History Father Pancreatic cancer Social History Social History Social History: Surrogate medical decision maker: Gricelda Colmenares, daughter. Code status: Full code. Smoking status: Former smoker Alcohol intake: former Substance use: current Substance use type: marijuana Do You Feel Safe in your Home?: Yes Lack of Transportation: No Lack of Food: Never True Current Housing: I Have Housing Concerned About Future Housing: No Difficulty Paying Gas/Electric Bills: No Difficulty Paying for Meds: No Currently Unemployed: No Education: Grade School Difficulty w/ Childcare or Family Care: No Spiritual care concerns: No Meds Home Medications and Allergies Home Medications Medication Instructions Recorded Confirmed Type potassium chloride 20 mEq 20 meq PO BID #10 tabs 04/28/23 10/12/23 Rx tablet,extended release acetaminophen 650 mg tablet 650 mg PO Q6H PRN Pain (Scale 10/12/23 10/12/23 History Score 1-3) albuterol sulfate 90 mcg/actuation 2 puff inhalation QID PRN 10/12/23 10/12/23 History aerosol inhaler Shortness Of Breath amiodarone 200 mg tablet 200 mg PO BID 10/12/23 10/12/23 History amitriptyline 75 mg tablet 75 mg PO HS 10/12/23 10/12/23 History aspirin 81 mg tablet,delayed 81 mg PO DAILY 10/12/23 10/12/23 History release atorvastatin 20 mg tablet 20 mg PO HS 10/12/23 10/12/23 History budesonide-formoterol HFA 160 2 puff inhalation Q12H 10/12/23 10/12/23 History mcg-4.5 mcg/actuation aerosol inhaler (Symbicort) buspirone 10 mg tablet 10 mg PO BID 10/12/23 10/12/23 History cholestyramine (with sugar) 4 gram 4 g PO BID 10/12/23 10/12/23 History powder for susp in a packet cyanocobalamin (vitamin B-12) 250 250 mcg PO DAILY 10/12/23 10/12/23 History mcg tablet dapagliflozin propanediol 10 mg 10 mg PO DAILY 10/12/23 10/12/23 History tablet (Farxiga) digoxin 125 mcg (0.125 mg) tablet 125 mcg PO QHS 10/12/23 10/12/23 History (Lanoxin) diphenoxylate-atropine 2.5 1 tablet PO QID PRN Diarrhea 10/12/23 10/12/23 History mg-0.025 mg tablet (Lomotil) divalproex 500 mg tablet,delayed 500 mg PO Q12H 10/12/23 10/12/23 History release duloxetine 90 mg PO DAILY 10/12/23 10/12/23 History ergocalciferol (vitamin D2) 1,250 1,250 mcg PO DAILY 10/12/23 10/12/23 History mcg (50,000 unit) capsule famotidine 20 mg tablet (Pepcid) 20 mg PO BID 10/12/23 10/12/23 History furosemide 40 mg tablet 40 mg PO DAILY 10/12/23 10/12/23 History gabapentin 100 mg capsule 100 mg PO TID 10/12/23 10/12/23 History loratadine 10 mg tablet 10 mg PO DAILY
[2023-10-15] MEDS: FUROSEMIDE 40 MG TABLET PO (19:23)
[2023-10-15] MEDS: AMITRIPTYLINE HCL 25 MG TABLET 75 MG PO (21:36)
[2023-10-15] MEDS: MELATONIN 5 MG TABLET PO (21:36)
[2023-10-15] MEDS: ATORVASTATIN 20 MG TABLET PO (21:36)
[2023-10-15] MEDS: RIVAROXABAN 20 MG TABLET PO (21:36)
[2023-10-15] MEDS: DIGOXIN TAB 125 MCG TABLET PO (21:36)
--- NOTE | 2023-10-15 22:02 | PC.NURSE ---
Spoke with Dr. Fountain about patient BP 91/66 and went over patient's meds due. Dr. Fountain says to hold entresto for [employer].
[2023-10-16] VITALS (20 sets, daily range): BP systolic 102–114; BP diastolic 62–71; PULSE 73–97; RESP 16–18; TEMP 36.3–36.8; O2SAT 84–98
[2023-10-16] MEDS: IPRATROPIUM 0.5 MG/ALBUTEROL SULFATE 2.5 MG AMPUL.NEB 3 ML INHALATION ×3 (02:35→14:27)
[2023-10-16] MEDS: FLUTICASONE/SALMETEROL 115-21 MCG INHALER 1 PUFF 2 PUFF INHALATION (07:43)
[2023-10-16] MEDS: POTASSIUM CHLORIDE 20 MEQ ER TABLET PO ×2 (08:32→17:10)
[2023-10-16] MEDS: LORATADINE 10 MG TABLET PO (08:32)
[2023-10-16] MEDS: GABAPENTIN 100 MG CAPSULE PO ×3 (08:32→17:11)
[2023-10-16] MEDS: ASPIRIN 81 MG ENTERIC TABLET PO (08:32)
[2023-10-16] MEDS: QUEtiapine FUMARATE 25 MG TABLET PO ×2 (08:32→17:31)
[2023-10-16] MEDS: DIVALPROEX SODIUM DR 250 MG TABEC 500 MG PO (08:32)
[2023-10-16] MEDS: CYANOCOBALAMIN 250 MCG TABLET PO (08:32)
[2023-10-16] MEDS: DULoxetine HCL 30 MG CAPSULE.DR 90 MG PO (08:32)
[2023-10-16] MEDS: CHOLESTYRAMINE (W/ SUGAR) 4 GM POWD.PACK PO (08:32)
[2023-10-16] MEDS: oxyCODONE HCL (*CRX) 5 MG TAB IR PO ×2 (08:33→17:10)
[2023-10-16] MEDS: AMIODARONE HCL 200 MG TABLET PO (08:33)
[2023-10-16] MEDS: FAMOTIDINE 20 MG TABLET PO ×2 (08:34→17:10)
[2023-10-16] MEDS: busPIRone HCL 10 MG TABLET PO ×2 (08:34→17:10)
[2023-10-16] MEDS: EMPAGLIFLOZIN 10 MG TABLET PO (08:34)
[2023-10-16] MEDS: ERGOCALCIFEROL 50,000 UNITS CAPSULE 50000 UNITS PO (08:39)
[2023-10-16 11:18] LABS: Hemoglobin 12.5 g/dL (14.0-18.0); Mean Corpuscular HGB Conc 31.3 g/dl (32-36); Mean Corpuscular Hemoglobin 29.1 pg (26-34); Mean Platelet Volume 11.2 fl (7.4-10.4); Platelet Count Result 245 k/mm3 (150-375); Red Cell Distribution Width 15.8 % (11.5-14.5); White Blood Count 10.6 K/mm3 (4.5-10.0)
--- NOTE | 2023-10-16 13:22 | PM.PNCARD ---
Progress Note: A&P Assessment and Plan (1) CHF (congestive heart failure): Code(s): I50.9 - Heart failure, unspecified Status: Acute (2) Acute on chronic heart failure with reduced ejection fraction (HFrEF, <= 40%): Code(s): I50.23 - Acute on chronic systolic (congestive) heart failure Status: Acute Plan 63-year-old man with nonischemic cardiomyopathy entered the hospital with CHF exacerbation. He is doing better following diuresis. S are he is tolerate very low-dose Entresto being added to his regimen which is to be continued. I would try to avoid holding doses in the setting of asymptomatic hypotension. Long-term prognosis is limited. As he is doing better I would imagine large should be planned in the next 24-48 hours. According to the record he has cardiology follow-up elsewhere that will presumably be is follow-up arrangement after discharge Gio Fountain MD [facility] Subjective Date/time seen: Date of service: 10/16/23 13:22 Interval history: Cardiology follow up for CHF He is feeling better today, notes an improvement in his breathing. Date of service 10/15/2023: Feels about the same. Breathing is stable. Telemetry continues to show brief runs of NSVT Date of service 10/15/2023: Patient resting comfortably in bed sleeping when I entered the room upon awakening voices no cardiovascular complaints blood pressure fine today evening dose Entresto held last night by staff because of asymptomatic hypotension Exam Const: General: comfortable and no acute distress HENMT: Mouth: Yes moist mucous membranes Eyes: General: appearance normal, both eyes and all related structures Sclera: sclerae normal Resp: Effort & Inspection: normal respiratory effort Auscultation: diminished lung sounds Cardio: Rate: regular rate Rhythm: regular rhythm Heart sounds: no murmurs Extrem: Other: Bilateral amputations Psych: Mental Status: mental status grossly normal Affect: normal affect Objective Data Vital Signs Vital Signs: Vital Signs - 24 hr 10/15/23 13:45 10/15/23 13:57 10/15/23 14:00 Temperature 36.4 C Pulse Rate 77 79 78 Respiratory Rate 20 20 18 Blood Pressure 86/50 L Pulse Oximetry 95 Oxygen Delivery Oxygen Flow Rate 10/15/23 19:43 10/15/23 16:00 10/15/23 20:00 Temperature 36.5 C Pulse Rate 84 78 Respiratory Rate 20 Blood Pressure 91/66 L Pulse Oximetry 94 94 Oxygen Delivery Nasal Cannula Oxygen Flow Rate 3 10/15/23 21:42 10/15/23 21:43 10/15/23 23:00 Temperature 36.4 C L Pulse Rate 76 77 Respiratory Rate 20 18 Blood Pressure 147/118 H Pulse Oximetry 95 99 Oxygen Delivery Nasal Cannula Oxygen Flow Rate 3 10/15/23 19:45 10/16/23 01:14 10/16/23 02:35 Temperature Pulse Rate 73 Respiratory Rate 18 Blood Pressure 110/66 114/62 Pulse Oximetry Oxygen Delivery Oxygen Flow Rate 10/16/23 02:45 10/16/23 05:00 10/15/23 20:00 Temperature 36.3 C L Pulse Rate 74 89 84 Respiratory Rate 18 16 Blood Pressure 105/67 Pulse Oximetry 98 Oxygen Delivery Oxygen Flow Rate 10/16/23 00:00 10/16/23 04:00 10/16/23 07:49 Temperature Pulse Rate 88 88 81 Respiratory Rate 18 Blood Pressure Pulse Oximetry Oxygen Delivery Oxygen Flow Rate 10/16/23 07:45 10/16/23 08:00 10/16/23 07:49 Temperature Pulse Rate 86 Respiratory Rate 18 Blood Pressure Pulse Oximetry 84 L 91 Oxygen Delivery Room Air Nasal Cannula Oxygen Flow Rate 3 10/16/23 08:33 10/16/23 08:51 10/16/23 09:00 Temperature 36.8 C Pulse Rate 90 90 81 Respiratory Rate 16 Blood Pressure 102/68 Pulse Oximetry 98 Oxygen Delivery Oxygen Flow Rate 10/16/23 08:03 10/16/23 08:32 10/16/23 12:00 Temperature Pulse Rate 95 97 Respiratory Rate Blood Pressure Pulse Oximetry 93 Oxygen Delivery Nasal Cannula Oxygen Flow Rate 3 10/16/23 12:54 Temperature
--- NOTE | 2023-10-16 14:51 | PM.DS ---
DS: Admitting Diagnosis Discharge Date 10/16/2023 Admitting Diagnosis Acute on Chronic Hypoxic Respiratory Failure DS: Discharge Diagnosis Discharge Diagnosis (1) CHF exacerbation: Code(s): I50.9 - Heart failure, unspecified Status: Acute Assessment and Plan: - Seen by metal treater during inpatient stay. - Lasix changed to PO BID from PO Daily. - Continue strict I &O's with daily weights. - Continue Digoxin, metoprolol, Entresto, Jardiance. - ECHO showed EF 30-35 %. - Not a candidate of ICD per metal treater note. (2) Chronic obstructive pulmonary disease: Code(s): J44.9 - Chronic obstructive pulmonary disease, unspecified Status: Acute Assessment and Plan: - CXR with no infiltrates. - Stabilized with scheduled bronchodilators and supplemental O2. - Continue home bronchodilators. - Continue supplemental O2, currently at 3L/NC per home dose with sats > 90 %. (3) Chronic respiratory failure with hypoxia, on home oxygen therapy: Code(s): J96.11 - Chronic respiratory failure with hypoxia; Z99.81 - Dependence on supplemental oxygen Status: Acute Assessment and Plan: - Stabilized. - Continue supplemental O2 to maintain sats > 90 %. - Continue scheduled bronchodilators. (4) Obstructive sleep apnea on CPAP: Code(s): G47.33 - Obstructive sleep apnea (adult) (pediatric) Status: Acute Assessment and Plan: - Continue CPAP bedtime. (5) Paroxysmal atrial fibrillation: Code(s): I48.0 - Paroxysmal atrial fibrillation Status: Acute Assessment and Plan: - Episodes of NSVT on telemetry. - Continue Digoxin, metoprolol and Xarelto. - Seen by Automation Driver inpatient. (6) Chronic anticoagulation: Code(s): Z79.01 - dredge master (current) use of anticoagulants Status: Acute Assessment and Plan: - Continue Xarelto. (7) Hypertension: Code(s): I10 - Essential (primary) hypertension Status: Acute Assessment and Plan: - BP trending low normals. - Monitor closely with diuresis. Plan Patient appears to be back to his baseline and is medically stable for discharge. Cleared by metal treater for discharge and patient to continue f/u with his metal treater outpatient. DS: Summary Hospital Course Reason for hospitalization: Worsening shortness of breath. Hospital Course: Patient was admitted from the [place] that he resides with reports of worsening SOB within the last couple of days prior to his presentation. CXR done was consistent with pulmonary edema, bibasilar atelectasis. Patient was also noted with episodes of NSVT. Patient has been stabilized with IV diuretics that were converted to oral prior to his discharge. He was followed up with the metal treater during his hospitalization and started on a low-dose of Entresto. He was continued on his other home medications, with his Lasix dose increased from 40 mg Daily to BID prior to discharge. Patient appears to be at his baseline with his baseline supplemental O2 at 3L/NC maintaining saturations > 90 %. He had episodes of low-normals BP but was asymptomatic. No acute distressful symptoms were noted or evaluated prior to discharge and he was cleared for discharge by the metal treater as well. Status at Discharge Functional status at discharge: wheelchair bound Time Spent with Patient Time attestation: Total time spent providing and/or coordinating discharge services: Time spent: Greater than 30 minutes Exam Narrative: General: Fair appearing, no acute distress. HEENT: Atraumatic, PERRL, non-icteric, MMM, Neck: Supple. Respiratory: Faint expiratory wheezes. Cardiovascular: RRR, no murmurs. GI: Soft, non-tender, +ve bowel sounds X4 quadrants. Skin: Warm, dry and pink. No lesions noted. Extremities: Jonathan AKA. DS: Data Data Completed and Pending Labs on day of discharge: Labs from last 24 hours 10/16/23 11:10 WBC 10.6 H RBC 4.30 L Hgb 12.5 L Hct 40.0 L
[2023-10-16 16:53] LABS: SARS-CoV-2 RNA PCR Negative (Negative)
[2023-10-16] MEDS: FUROSEMIDE 40 MG TABLET PO (17:10)
== END 2023-10-16 18:10 | DRG 291 ==
LOC: ANHED 10:27 → ANH3MEDSUR 15:20
PROVIDERS: Emergency Medicine; Nurse Practitioner; Physician Assistant; Admitting Provider General Practice; Emergency Provider Emergency Medicine; Visit Provider Nurse Practitioner Adult Health
DX: I11.0 Hypertensive heart disease with heart failure (principal); I50.23 Acute on chronic systolic (congestive) heart failure; J44.0 Chronic obstructive pulmonary disease with (acute) lower respiratory infection; J96.11 Chronic respiratory failure with hypoxia; J20.9 Acute bronchitis, unspecified; I42.8 Other cardiomyopathies; I73.9 Peripheral vascular disease, unspecified; E78.5 Hyperlipidemia, unspecified; K21.9 Gastro-esophageal reflux disease without esophagitis; M06.9 Rheumatoid arthritis, unspecified; G47.33 Obstructive sleep apnea (adult) (pediatric); Z20.822 Contact with and (suspected) exposure to COVID-19; F31.9 Bipolar disorder, unspecified; F41.9 Anxiety disorder, unspecified; Z99.81 Dependence on supplemental oxygen; Z11.52 Encounter for screening for COVID-19; Z89.612 Acquired absence of left leg above knee; Z89.611 Acquired absence of right leg above knee; Z79.82 Long term (current) use of aspirin; Z79.01 Long term (current) use of anticoagulants
CPT/HCPCS: 36415; 71045; 80048; 80053; 80162; 83735; 83880; 84132; 84145; 85025; 85027; 87040; 87635; 87637; 93005; 93306; 94640; 96365; 96375; 96376; 99285; A9270; G0378; J0696; J1940; J2919